=== PATIENT | female | born 1945 | race Caucasian/White ===

== ENCOUNTER 2018-07-11 00:25 | Outpatient (CLI) | payer MEDICARE, BC, SELFPAY ==
--- NOTE | 2018-07-11 08:34 | DI.REPORT_ITS ---
SYMPTOM/DIAGNOSIS: RIGHT SIDED PELVIC PAIN R10.2 HEMATURIA PELVIC ULTRASOUND: Comparison is made with 16 Nov 2013. Transabdominal and transvaginal exams were performed. The patient is status post hysterectomy. The ovaries were not able to be identified either transabdominally or transvaginally. No fluid is seen in the pelvis. Urinary bladder was not well distended for the transabdominal images. The kidneys are unremarkable. IMPRESSION: Status post hysterectomy. The ovaries were not identified.
== END 2018-07-11 00:26 ==
PROVIDERS: PCP General Practice; Visit Provider Nurse Practitioner Women's Health
DX: R10.2 Pelvic and perineal pain (principal); R31.9 Hematuria, unspecified; Z90.710 Acquired absence of both cervix and uterus
CPT/HCPCS: 76830; 76856

== ENCOUNTER 2019-02-22 09:31 | Emergency (ER) | payer MEDICARE, BC, SELFPAY ==
[2019-02-22 09:34] VITALS: BP 152/69; PULSE 70; RESP 16; TEMP 36.6; O2SAT 99
--- NOTE | 2019-02-22 10:12 | DI.US_ITS ---
SYMPTOMS/DIAGNOSIS: LT POSTERIOR KNEE PAIN LEFT LEG ULTRASOUND: There is no evidence of DVT. A small fluid collection is noted posterior to the knee and would certainly be consistent with a adan's cyst. This collection measures approximately 1 x 1.9 x 0.4 cm.
--- NOTE | 2019-02-22 12:08 | DI.RAD_ITS ---
SYMPTOMS/DIAGNOSIS: LT POSTERIOR KNEE PAIN LEFT KNEE: The bony structures and joint spaces appear intact. There is no evidence of a fracture or dislocation.
[2019-02-22] MEDS: Ibuprofen 800 MG TAB PO (12:09)
[2019-02-22] MEDS: Acetaminophen 500 MG TAB 1000 MG PO (12:10)
[2019-02-22] MEDS: Lidocaine 5% Patch 1 PATCH TP (12:12)
--- NOTE | 2019-02-22 12:20 | ED.GENADUL_ITS ---
Discharge Plan Disposition Patient Disposition: HOME Condition: Good Discharge Details Chief Complaint: Orthopedic Clinical Impression: Clark cyst Primary Care Provider: Andry Ceballos ED Provider: You Stein Home Meds and New Rx's Prescriptions: No Action calcium carbonate [Calcium 500] 500 MG tablet 500 mg PO DAILY RF: 0 Vitamin C 100 MG tablet 100 mg PO DAILY RF: 0 epinephrine 0.3 MG/0.3 ML auto-injector 0.3 mg IM PRN RF: 0 CENTRUM TABLET 1 EACH tablet 1 ea PO DAILY RF: 0 fluticasone propionate 16 GM spray,suspension 1 spray NS DAILY PRNQty: 3 RF: 3 zinc 50 mg Tablet PO DAILY RF: 0 Discharge Instructions Instructions: Bakers Cyst (ED) Additional Instructions: Please take up to 1000 mg of Tylenol every 6 hours and a maximum dose of 600 mg of ibuprofen every 6 hours for the pain. Please keep it wrapped in an wrap, use the crutches as directed. Please use ice as often as possible. Please follow-up with your orthopedic surgeon Dr. Nielsen or your primary care provider as soon as possible for reassessment. If you notice any worsening of your symptoms, or any new symptoms such as vomiting, diarrhea, fever, chills, shortness of breath, chest pain, numbness, weakness, or fainting , please return immediately to the emergency department for reevaluation. Please follow up with your primary care provider as soon as possible for reassessment and reevaluation. As always, it was a pleasure participating in your medical care today. Referrals: Andry Ceballos MD [Primary Care Provider] - Discharge Data Discharge Date/Time-TO BE ENTERED AT DEPARTURE: 02/22/19 12:30 Medical Decision Making Is a 74-year-old female who presents today for evaluation of left knee pain began yesterday without any trauma she was working in the knee. The pain gradually worsened yesterday and has continued today. Patient has moderate pain when ambulating, has difficulty bearing weight secondary to the pain posterior aspect of the knee. It is notably worsened with extension. Physical exam demonstrates no signs of joint or ligamentous laxity. There is reproducible t enderness in the posterior aspect notably concerning for Clark's cyst. No significant calf tenderness. I did discuss with the patient a conservative approach versus further workup for what was expected to be a Clark's cyst, and the patient is requesting further evaluation and workup. X-ray and ultrasound was ordered. Ultrasound shows no evidence of DVT in her extremity, and x-ray shows no evidence of acute fracture process. With no history of trauma I do not think that a CT scan is clinically indicated at this time. Ultrasound does show evidence of a notable Clark's cyst, which is clinically consistent with her symptomatology and history. We will recommend continued NSAIDs, wrapping with an bandage, ice, and crutches nonweightbearing as tolerated. Recommend close follow-up with her primary care provider as well. If her symptoms do not improve in the next 1-2 weeks with conservative therapy, orthopedic referral may be indicated by her PCP. Prior to discharge we did do an ambulatory test with her and the crutches, the patient ambulated well with the crutches, and she and her state that they feel comfortable to go home. Discussed red flags for which to return and the patient understands. I have extensively reviewed the treatment plan and discharge instructions with the patient and their family. I have addressed all patient concerns at this time. The patient and family was made aware of what symptoms to monitor for that would warrant a return to the emergency department. Discussed the plan with the patient and family, they demonstrate verbal understanding and agreement with our assessment and plan at this time. Exam(s) a RAD:XR knee LT 3V AP,lat,charleen SYMPTOMS/DIAGNOSIS: LT POSTERIOR KNEE PAIN LEFT KNEE: The bony structures and joint spaces appear intact. There is no evidence of a fracture or dislocation. Ordered By: You Stein DO CC: Exam(s) a US:US lower extremity venous LT SYMPTOMS/DIAGNOSIS: LT POSTERIOR KNEE PAIN LEFT LEG ULTRASOUND: There is no evidence of DVT. A small fluid collection is noted posterior to the knee and would certainly be consistent with a clark's cyst. This collection measures approximately 1 x 1.9 x 0.4 cm. Ordered By: You Stein DO CC: HPI General Date/Time Provider Initiated Documentation: 02/22/19 09:52 . HPI Narrative: This is a 74-year-old female with a past medical history of asthma, osteoporosis, cervical cancer who presents today for evaluation of left-sided knee pain. Patient states that yesterday she has been working, and noticed a small area of soreness behind her knee, this pain continued and slightly worsened with use over the next 24 hours. Patient describes the pain is in the posterior aspect of her left knee, worse with extension of the knee as well as being weight. She denies any fall, trauma, or other incident. She denies any radiation of the pain down the leg or up the leg towards the hip. She denies any fever or chills. She is not on blood thinners. She denies any previous significant surgeries on the knee. She denies any other modifying factors. No other complaints at this time. She has taken some NSAIDs and this is slightly improved her symptoms. Related Data Home Medications Medication Instructions Recorded Confirmed Centrum Tablet 1 ea PO DAILY 11/09/13 02/22/19 Vitamin C 100 mg PO DAILY 11/09/13 02/22/19 calcium carbonate [Calcium 500] 500 mg PO DAILY 11/09/13 02/22/19 epinephrine 0.3 mg IM PRN 11/09/13 02/22/19 fluticasone propionate 1 spray NS DAILY PRN #3 spray 11/18/14 02/22/19 zinc mg PO DAILY 02/22/19 Allergies Allergy/AdvReac Type Severity Reaction Status Date / Time amoxicillin Allergy Severe HIVES Unverified 02/22/19 09:41 ampicillin Allergy Severe HIVES Unverified 02/22/19 09:41 clarithromycin Allergy Severe SOB Unverified 02/22/19 09:41 erythromycin base Allergy Severe SOB Unverified 02/22/19 09:41 Iodinated Contrast- Oral and Allergy Severe LOC Unverified 02/22/19 09:41 IV Dye [Iodinated Contrast Media - Oral and] shellfish derived Allergy Intermediate Unverified 02/22/19 09:41 venom-honey bee Allergy Intermediate Unverified 02/22/19 09:41 [place] Allergy Intermediate Severe GI Uncoded 02/22/19 09:41 upset General Stated Complaint: Orthopedic SONYA: 3 Review of Systems Review of Systems All systems reviewed & are unremarkable except as noted in HPI and below PFSH Medical History Asthma Breast cancer Cervical cancer Osteoporosis Surgical History Biopsy of breast Breast Surgery Surgeries Vaginal hysterectomy Family History Mother Heart disease Hyperlipidemia Leukemia Stroke Father Leukemia Sister Essential hypertension Neoplasm Asthma Brother Heart disease Hyperlipidemia Neoplasm Brother Neoplasm Brother Neoplasm Brother Neoplasm Grandfather Heart disease Stroke Grandfather No problems noted. Grandmother Heart disease Grandmother No problems noted. Son No problems noted. Daughter No problems noted. Daughter No problems noted. Social History Smoking/Tobacco Use Status: Never Alcohol Intake: never Substance use type: does not use Do you feel safe at home: Yes Do you feel safe in your relationship?: Yes Exam Narrative Exam Narrative: 1.Const: Well-nourished, Well-developed, appearing stated age 2.Eyes: PERRL, no conjunctival injection, and symmetrical lids. 3.ENT: Atraumatic external nose and ears. Moist MM. Neck: Symmetric, trachea midline, No thyromegaly. 4.CVS: +S1/S2, No murmurs or gallops. Peripheral pulses 2+ and equal in all extremities. Brisk capillary refill in all extremities. 5.RESP: Unlabored respiratory effort. Clear to auscultation bilaterally. No wheezes rales or rhonchi 6.GI: Soft, Nontender/Nondistended, No hepatosplenomegaly. No guarding or rebound. 7.MSK: Normocephalic/Atraumatic, Extremities w/o deformity. No cyanosis or clubbing, left knee: The knee is stable to varus, valgus, and anterior drawer stress. No deformity. Patellar grind test is negative. Minimal swelling and tenderness in the posterior aspect of the left knee. No evidence of warmth or infection. No signs of bruising or trauma. Patient does have pain when walking and extending the knee. No ttp to the patella, tibial plateau, or fibular head. 8.Skin: Warm, Dry. No rashes or lesions. 9.Neuro: medical transcription radiology II-XII grossly intact. Sensation grossly intact, no focal neurologic deficits. 10.Psych: (AAO) x3. Appropriate mood and affect Course Vital Signs Temperature 36.6 C 02/22/19 09:34 Pulse 70 02/22/19 09:34 Respiratory Rate 16 02/22/19 09:34 Blood Pressure 152/69 H 02/22/19 09:34 Pulse Oximetry 99 02/22/19 09:34 Temperature 36.6 C 02/22/19 09:34 Temperature Source Skin 02/22/19 09:34 Pulse 70 02/22/19 09:34 Respiratory Rate 16 02/22/19 09:34 Respiratory Effort 02/22/19 09:44 Blood Pressure 152/69 H 02/22/19 09:34 Blood Pressure Position Sitting 02/22/19 09:34 Pulse Oximetry 99 02/22/19 09:34 Oxygen Delivery Method Room Air 02/22/19 09:34 Oxygen Flow Rate 0 02/22/19 09:34 Pain Level 10 02/22/19 12:10 Lab/Test Results Lab/Test Results: Laboratory Tests Range/Units 02/22/19 02/22/19 02/22/19 10:00 10:00 10:00 WBC Cancelled RBC Cancelled Hgb Cancelled Hct Cancelled MCV Cancelled MCH Cancelled MCHC Cancelled RDW Cancelled Plt Count Cancelled MPV Cancelled Immature Gran % Cancelled Neutrophils % Cancelled Band Neutrophils % Cancelled Lymphocytes % Cancelled Atypical Lymphs % Cancelled Monocytes % Cancelled Eosinophils % Cancelled Basophils % Cancelled Metamyelocytes % Cancelled Myelocytes % Cancelled Promyelocytes % Cancelled Absolute Neutrophils Cancelled Absolute Lymphocytes Cancelled Absolute Monocytes Cancelled Absolute Eosinophils Cancelled Absolute Basophils Cancelled Nucleated RBCs Cancelled Differential Comment Cancelled Other Cell Type Cancelled RBC Morphology Cancelled Polychromasia Cancelled Hypochromasia Cancelled Poikilocytosis Cancelled Basophilic Stippling Cancelled Anisocytosis Cancelled Microcytosis Cancelled Macrocytosis Cancelled Spherocytes Cancelled Target Cells Cancelled Tear Drop Cells Cancelled Ovalocytes Cancelled Stomatocytes Cancelled [place] Bodies Cancelled [place] Cells Cancelled Acanthocytes (Spur) Cancelled Schistocytes Cancelled PT Cancelled INR Cancelled APTT Cancelled D-Dimer Cancelled VBG pH VBG pCO2 VBG pO2 VBG HCO3 VBG Total CO2 VBG O2 Saturation VBG Base Excess Sodium Cancelled Potassium Cancelled Chloride Cancelled Carbon Dioxide Cancelled Anion Gap Cancelled BUN Cancelled Creatinine Cancelled Estimated GFR/1.73 m2 Cancelled Glucose Cancelled Calcium Cancelled Total Bilirubin Cancelled AST Cancelled ALT Cancelled Alkaline Phosphatase Cancelled Troponin I Cancelled NT-Pro-B Natriuret Pep Cancelled Total Protein Cancelled Albumin Cancelled Range/Units 02/22/19 10:00 WBC RBC Hgb Hct MCV MCH MCHC RDW Plt Count MPV Immature Gran % Neutrophils % Band Neutrophils % Lymphocytes % Atypical Lymphs % Monocytes % Eosinophils % Basophils % Metamyelocytes % Myelocytes % Promyelocytes % Absolute Neutrophils Absolute Lymphocytes Absolute Monocytes Absolute Eosinophils Absolute Basophils Nucleated RBCs Differential Comment Other Cell Type RBC Morphology Polychromasia Hypochromasia Poikilocytosis Basophilic Stippling Anisocytosis Microcytosis Macrocytosis Spherocytes Target Cells Tear Drop Cells Ovalocytes Stomatocytes [place] Bodies [place] Cells Acanthocytes (Spur) Schistocytes PT INR APTT D-Dimer VBG pH Cancelled VBG pCO2 Cancelled VBG pO2 Cancelled VBG HCO3 Cancelled VBG Total CO2 Cancelled VBG O2 Saturation Cancelled VBG Base Excess Cancelled Sodium Potassium Chloride Carbon Dioxide Anion Gap BUN Creatinine Estimated GFR/1.73 m2 Glucose Calcium Total Bilirubin AST ALT Alkaline Phosphatase Troponin I NT-Pro-B Natriuret Pep Total Protein Albumin
== END 2019-02-22 12:30 | disposition home or self-care (01) ==
PROVIDERS: Emergency Provider Student in an Organized Health Care Education/Training Program; PCP General Practice
DX: M71.22 Synovial cyst of popliteal space [Baker], left knee (principal)
CPT/HCPCS: 73562; 80053; 82805; 99284; 83880; 84484; 85025; 85379; 85610; 85730; 93971; E0114

== ENCOUNTER 2019-03-15 11:08 | Outpatient (CLI) | payer MEDICARE, BC, SELFPAY ==
--- NOTE | 2019-03-15 11:20 | DI.RAD_ITS ---
SYMPTOMS/DIAGNOSIS: SWELLING LEFT KNEE: AP view only was obtained and shows narrowing of the medial tibiofemoral cartilaginous joint space. No focal bony abnormality seen on this single view.
== END 2019-03-15 11:28 ==
PROVIDERS: PCP General Practice; Referring Provider General Practice; Visit Provider Orthopaedic Surgery
DX: M25.562 Pain in left knee (principal); M25.462 Effusion, left knee; M70.52 Other bursitis of knee, left knee
CPT/HCPCS: 20610; 99202; 99213; 73560; J1030; J1040

== ENCOUNTER 2019-03-26 14:13 | Emergency (ER) | payer MEDICARE, BC, SELFPAY ==
[2019-03-26 14:18] VITALS: BP 140/84; PULSE 86; RESP 16; TEMP 36.8; O2SAT 95
--- NOTE | 2019-03-26 15:12 | DI.COMBO_ITS ---
SYMPTOM/DIAGNOSIS: WORSENING PAIN AND INCREASED SWELLING LEFT LOWER EXTREMITY ULTRASOUND: The deep veins of the left lower extremity show normal compression, augmentation and color flow. There is no evidence of a deep venous thrombus. The saphenofemoral junction appears unremarkable. There is a 1.6 by 1.7 by 1.2 cm. fluid collection in the popliteal fossa consistent with a small Clark's cyst. IMPRESSION: No evidence of a left lower extremity deep venous thrombus. Small Clark's cyst. LEFT KNEE: Three views. Comparison is made with 03/15/19 and 02/22/19. In the subchondral bone in the medial femoral condyle there is an area of sclerosis not appreciated on the prior examination. The bones are otherwise normally mineralized. No displaced fracture or dislocation is identified. There does appear to be a small joint effusion. The soft tissues are otherwise unremarkable. IMPRESSION: Question of a faint area of sclerosis in the subchondral bone in the medial femoral condyle. This may represent a nondisplaced insufficiency fracture. If further imaging is warranted, a repeat xray or MRI may be considered. Small joint effusion.
--- NOTE | 2019-03-26 15:19 | ED.GENADUL_ITS ---
Discharge Plan Disposition Patient Disposition: HOME Condition: Stable Discharge Details Chief Complaint: Orthopedic Clinical Impression: Knee pain, left, Effusion of left knee Primary Care Provider: Andry Ceballos ED Provider: Luisito Collins Home Meds and New Rx's Prescriptions: No Action calcium carbonate [Calcium 500] 500 MG tablet 1,800 mg PO DAILY RF: 0 Vitamin C 100 MG tablet 100 mg PO DAILY RF: 0 epinephrine 0.3 MG/0.3 ML auto-injector 0.3 mg IM PRN RF: 0 CENTRUM TABLET 1 EACH tablet 1 ea PO DAILY RF: 0 fluticasone propionate 16 GM spray,suspension 1 spray NS DAILY PRNQty: 3 RF: 3 zinc 50 mg Tablet PO DAILY RF: 0 Discharge Instructions Additional Instructions: Your ultrasound did not show any blood clot, you do have a clark's cyst. Your lab work was reassuring there is no infection in the joint Follow up with Dr. Stewart, call his office for an appointment if the knee becomes red, warm to touch or you have high fevers return to the emergency department Discharge Data Discharge Date/Time-TO BE ENTERED AT DEPARTURE: 03/26/19 18:20 Medical Decision Making <Luisito Collins MD - Last Filed: 03/26/19 18:16> 74 yo female comes in with over a month of left knee pain and denies any known trauma or falls. Was seen here on 02/22 and had xray and u/s done showing clark's cyst. On 03/16 she had joint injection done with Dr. Stewart and she states the pain never really went away. She has had increased pain and swelling so her pcp sent her here today for ane roly. She has no erythema or warmth of the left knee. She is able to range the knee but has discomfort. NO specific area hurts more than the rest. There is a small amount of swelling of the knee joint. I doubt septic joint given lack of warmth or redness but will send cbc, crp and esr to screen for this and also obtain xray and u/s u/s shows clark's cyst, no dvt. Xray shows small effusion, osteopenia, ?insufficiency fx though has no pain in this area. Labs reassuring that this is not a septic joint and fits with her exam. Spoke with Dr. stewart who reid ee her in the office this week. i did offer to attempt drain the knee here but pt declined. Return precautions given Differential Diagnosis OA, gout, dvt, clark's cyst Imaging Data Radiologic Study: Attestation: I personally reviewed and interpreted this imaging study as follows: Imaging: X-Ray Radiologist's impression: IMPRESSION: 1. Tiny knee joint effusion. 2. Osteopenia. 3. Faint horizontal band of sclerosis in the subchondral aspect of the distal femur medial condyle, which may be seen with nondisplaced insufficiency fracture without subchondral bone step-off. Radiologic Study #2: Attestation: I personally reviewed and interpreted this imaging study as follows: Imaging: Ultrasound Radiologist's impression: FINDINGS: Left deep veins: Unremarkable. The common femoral, femoral, proximal profunda femoral and popliteal veins are patent without thrombus. Normal Doppler waveforms. Normal compressibility and/or augmentation response. Left superficial veins: Unremarkable. Saphenofemoral junction is patent without thrombus. Soft tissues: There is a fluid collection, measuring 1.6 cm x 1.7 cm x 1.2 cm within the popliteal fossa consistent with small Clark's cyst versus other bursitis. IMPRESSION: No deep venous thrombosis. Lab Data Lab results reviewed: Yes I reviewed the patient's lab results. HPI <Luisito Collins MD - Last Filed: 03/26/19 18:16> General Date/Time Provider Initiated Documentation: 03/26/19 14:31 . Limitations to Documentation: no limitations . Information obtained by: patient . History of Present Illness 74 year old F presents to the emergency department with the chief complaint of left knee pain, described as moderate, Quality is described as aching, and is localized to the left and lower extremity. Patient reports no radiation. Patient started experiencing this month(s) (1) and it has been constant. Rest improves symptom(s), Movement worsens symptoms . Patient notes no other symptoms.. Patient did receive the following treatments prior to arrival, none Related Data Home Medications Medication Instructions Recorded Confirmed Centrum Tablet 1 ea PO DAILY 11/09/13 03/26/19 Vitamin C 100 mg PO DAILY 11/09/13 03/26/19 calcium carbonate [Calcium 500] 1,800 mg PO DAILY 11/09/13 03/15/19 epinephrine 0.3 mg IM PRN 11/09/13 03/26/19 fluticasone propionate 1 spray NS DAILY PRN #3 spray 11/18/14 03/26/19 zinc mg PO DAILY 02/22/19 03/15/19 Allergies Allergy/AdvReac Type Severity Reaction Status Date / Time amoxicillin Allergy Severe HIVES Unverified 03/26/19 14:27 ampicillin Allergy Severe HIVES Unverified 03/26/19 14:27 clarithromycin Allergy Severe SOB Unverified 03/26/19 14:27 erythromycin base Allergy Severe SOB Unverified 03/26/19 14:27 Iodinated Contrast- Oral and Allergy Severe LOC Unverified 03/26/19 14:27 IV Dye [Iodinated Contrast Media - Oral and] shellfish derived Allergy Intermediate Unverified 03/26/19 14:27 venom-honey bee Allergy Intermediate Unverified 03/26/19 14:27 [place] Allergy Intermediate Severe GI Uncoded 03/26/19 14:27 upset <Maddi Morin MD - Last Filed: 03/27/19 20:36> HPI Narrative: I did not see this patient or participate in her care, note started by me in error. General Stated Complaint: Vascular SONYA: 3 Review of Systems <Luisito Collins MD - Last Filed: 03/26/19 18:16> Review of Systems All systems reviewed & are unremarkable except as noted in HPI and below Constitutional Denies chills, Denies fever(s) and Denies weakness ENT Denies change in voice Cardiovascular Denies chest pain and Denies dyspnea Respiratory Denies cough and Denies dyspnea Gastrointestinal Denies abdominal pain, Denies nausea and Denies vomiting Genitourinary Denies dysuria Integumentary/Breasts Denies rash Neurologic Denies weakness Psychiatric Denies depression Endocrine Denies cold intolerance and Denies heat intolerance PFS <Luisito Collins MD - Last Filed: 03/26/19 18:16> Medical History Asthma Breast cancer Cervical cancer Osteoporosis Surgical History Biopsy of breast Breast Surgery Surgeries Vaginal hysterectomy Family History Mother Heart disease Hyperlipidemia Leukemia Stroke Father Leukemia Sister Essential hypertension Neoplasm Asthma Brother Heart disease Hyperlipidemia Neoplasm Brother Neoplasm Brother Neoplasm Brother Neoplasm Grandfather Heart disease Stroke Grandfather No problems noted. Grandmother Heart disease Grandmother No problems noted. Son No problems noted. Daughter No problems noted. Daughter No problems noted. Social History Smoking/Tobacco Use Status: Never Alcohol Intake: never Substance use type: does not use Do you feel safe at home: Yes Do you feel safe in your relationship?: Yes Exam <Luisito Collins MD - Last Filed: 03/26/19 18:16> Const General: no acute distress Orientation: alert HENMT Head: normal to inspection Ears: external ears normal General nose exam: external nose normal Mouth: moist mucous membranes Eyes General: appearance normal, both eyes and all related structures Neck Neck: normal visual inspection Resp Effort & Inspection: normal respiratory effort and able to speak in complete sentences Cardio Rate: regular rate Skin General skin exam: no rashes or lesions noted Neuro General: alert and oriented x3 Extrem General: normal capillary refill Psych Mental Status: mental status grossly normal <Maddi Morin MD - Last Filed: 03/27/19 20:36> Vital Signs Temperature 36.8 C 03/26/19 14:18 Pulse 86 03/26/19 14:18 Respiratory Rate 16 03/26/19 14:18 Blood Pressure 140/84 03/26/19 14:18 Pulse Oximetry 95 03/26/19 14:18 Temperature 36.8 C 03/26/19 14:18 Temperature Source Skin 03/26/19 14:18 Pulse 86 03/26/19 14:18 Respiratory Rate 16 03/26/19 14:18 Respiratory Effort 03/26/19 14:30 Blood Pressure 140/84 03/26/19 14:18 Pulse Oximetry 95 03/26/19 14:18 Oxygen Delivery Method Room Air 03/26/19 14:18 Oxygen Flow Rate 0 03/26/19 14:18 Pain Level 9 03/26/19 14:18
--- NOTE | 2019-03-26 16:34 | DI.VRAD_ITS ---
EXAM: US Duplex Left Lower Extremity Veins, Limited EXAM DATE/TIME: 03/26/2019 3:40 PM CLINICAL HISTORY: 74 years old, female; Pain; Leg, lower; Left TECHNIQUE: Imaging protocol: Real-time Duplex ultrasound of the Left Lower Extremity with 2-D carlson scale, color Doppler flow and spectral waveform analysis. Limited exam focused on the left lower extremity veins. COMPARISON: No relevant prior studies available. FINDINGS: Left deep veins: Unremarkable. The common femoral, femoral, proximal profunda femoral and popliteal veins are patent without thrombus. Normal Doppler waveforms. Normal compressibility and/or augmentation response. Left superficial veins: Unremarkable. Saphenofemoral junction is patent without thrombus. Soft tissues: There is a fluid collection, measuring 1.6 cm x 1.7 cm x 1.2 cm within the popliteal fossa consistent with small Clark's cyst versus other bursitis. IMPRESSION: No deep venous thrombosis. Dictated and Authenticated by: Javan Veliz MD. Ordering:TANIA Jorge MD
[2019-03-26 16:36] LABS: Abs Immature Grans 0.02 k/cumm (0.0-0.09); Absolute Basophil Count 0.03 k/cumm (0.0-0.2); Absolute Eosinophil Count 0.22 k/cumm (0.0-0.7); Absolute Lymphocyte Count 2.47 k/cumm (1.2-3.4); Absolute Monocyte Count 0.65 k/cumm (0.11-0.7); Absolute Neutrophil Count 6.72 k/cumm (1.2-6.7); Basophils % 0.3; Eosinophils % 2.2; Immature Grans % 0.2; Lymphocytes % 24.4; Mean Corp. HGB Concentration 34.1 g/dL (32.0-36.0); Mean Corpuscular Hemoglobin 31.1 pg (27.0-33.0); Mean Corpuscular Volume 91.1 fL (80-95); Mean Platelet Volume 11.1 fL (8.0-11.0); Monocytes % 6.4; Neutrophils % 66.5; Platelet Count 245 x1000/uL (130-400); RBC Distribution Width 14.4 % (11.7-14.6); White Blood Cell Count 10.11 k/cumm (4.4-10.8)
--- NOTE | 2019-03-26 16:37 | DI.VRAD_ITS ---
EXAM: XR Left Knee, 3 Views EXAM DATE/TIME: 03/26/2019 4:12 PM CLINICAL HISTORY: 74 years old, female; Knee; Left; Patient HX: Worsening pain and swelling TECHNIQUE: Imaging protocol: XR Left knee. Views: 3 views. COMPARISON: CR XR knee LT 1V 03/15/2019 11:14 AM FINDINGS: Bones/joints: Tiny knee joint effusion. Osteopenia. Small horizontal band of sclerosis within the subchondral aspect of the distal femur medial condyle which may indicate a nondisplaced insufficiency fracture. No subchondral bone step-off is identified. The tibiofemoral and patellofemoral joints are unremarkable. No displaced fracture. Soft tissues: Normal. IMPRESSION: 1. Tiny knee joint effusion. 2. Osteopenia. 3. Faint horizontal band of sclerosis in the subchondral aspect of the distal femur medial condyle, which may be seen with nondisplaced insufficiency fracture without subchondral bone step-off. Dictated and Authenticated by: Javan Veliz MD. Ordering:TANIA Jorge MD
[2019-03-26 16:46] LABS: C-Reactive Protein 0.64 mg/dL (0.0-0.3)
[2019-03-26 16:48] LABS: ALT 18 U/L (12-78); AST 15 U/L (15-37); Alkaline Phosphatase 72 U/L (46-116); Anion Gap 7.6 mmol/L (3-11); BUN 25 mg/dL (7-18); Bilirubin, Total 0.4 mg/dL (0.2-1.0); CO2 27.4 mmol/L (21.0-32.0); CREATININE 0.72 mg/dL (0.55-1.02); Calcium 9.3 mg/dL (8.5-10.1); Chloride 104 mmol/L (98-107); Glucose 89 mg/dL (70-100); Sodium 139 mmol/L (136-145); Total Protein 7.5 g/dL (6.4-8.2)
[2019-03-26 17:26] LABS: ESR 11 MM/HR (0-30)
== END 2019-03-26 18:20 | disposition home or self-care (01) ==
PROVIDERS: Emergency Provider Emergency Medicine; PCP General Practice
DX: M25.562 Pain in left knee (principal); M25.462 Effusion, left knee; M71.22 Synovial cyst of popliteal space [Baker], left knee; M85.80 Other specified disorders of bone density and structure, unspecified site
CPT/HCPCS: 36415; 73562; 80053; 85652; 99284; 85025; 86140; 93971

== ENCOUNTER 2019-03-28 01:18 | Outpatient (CLI) | payer MEDICARE, BC, SELFPAY ==
--- NOTE | 2019-03-28 08:46 | DI.MRI_ITS ---
SYMPTOM/DIAGNOSIS: LT KNEE PAIN, NEG US, ? INSUFFICIENCY FX LEFT KNEE MRI: Routine noncontrast examination. Comparison xray is 03/26/19. There is a tear of the body and posterior horn of the medial meniscus. There is displacement of meniscal tissue into the intercondylar notch. The lateral meniscus is intact. The anterior cruciate, posterior cruciate, medial and lateral collateral ligaments, extensor mechanism and medial and lateral retinaculum are intact as is the popliteus tendon. There is thinning of the articular cartilage in the medial femoral tibial joint space. The articular cartilage is otherwise well maintained. There is a large amount of marrow edema involving the medial femoral condyle. There is a linear, low signal area in the subchondral bone of the medial femoral condyle suggestive of a fracture. There is mild marrow edema seen in the medial tibial plateau. There is a moderate sized joint effusion. No significant popliteal cyst is present. IMPRESSION: 1. Tear of the body and posterior horn of the medial meniscus with displacement of meniscal tissue medially into the intercondylar region. 2. Findings of a nondisplaced fracture involving the medial femoral condyle. 3. Moderate sized joint effusion.
== END 2019-03-28 01:38 ==
PROVIDERS: PCP General Practice; Visit Provider Orthopaedic Surgery
DX: M25.562 Pain in left knee (principal); S83.242A Other tear of medial meniscus, current injury, left knee, initial encounter; S72.435A Nondisplaced fracture of medial condyle of left femur, initial encounter for closed fracture; M25.462 Effusion, left knee
CPT/HCPCS: 73721

== ENCOUNTER → 2019-04-03 09:43 | Outpatient (BNVA) | payer MEDICARE, BC, SELFPAY | PROVIDERS: PCP General Practice; Referring Provider General Practice; Visit Provider Orthopaedic Surgery | DX: S83.242A Other tear of medial meniscus, current injury, left knee, initial encounter (principal); X58.XXXA Exposure to other specified factors, initial encounter; M87.9 Osteonecrosis, unspecified | CPT/HCPCS: 99212; 99213 ==

== ENCOUNTER 2019-08-30 15:32 | Outpatient (CLI) | payer MEDICARE, BC, SELFPAY ==
[2019-08-30 18:56] LABS: CREATININE 0.83 mg/dL (0.55-1.02)
== END 2019-08-30 15:52 ==
PROVIDERS: PCP General Practice; Visit Provider General Practice
DX: I10 Essential (primary) hypertension (principal)
CPT/HCPCS: 36415; 82565

== ENCOUNTER 2025-06-04 15:50 | Outpatient (REF) | payer MEDICARE, BC, SELFPAY ==
[2025-06-04 20:13] LABS: ALT 30 U/L (14-59); AST 25 U/L (15-37); Albumin 4.1 g/dL (3.4-5.0); Alkaline Phosphatase 81 U/L (46-116); Anion Gap 8.6 mmol/L (3-11); BUN 20 mg/dL (7-18); Bilirubin, Total 0.6 mg/dL (0.2-1.0); CO2 24.4 mmol/L (21.0-32.0); Calcium 9.2 mg/dL (8.5-10.1); Calculated LDL 129 mg/dL (<100); Chloride 107 mmol/L (98-107); Cholesterol 214 mg/dL (<200); Estimated GFR 87.37 (mL/min/1.73m2); Glucose 98 mg/dL (74-106); HDL Cholesterol 74 mg/dL (>or=50); Potassium 4.2 mmol/L (3.5-5.1); Sodium 140 mmol/L (136-145); Total Protein 7.5 g/dL (6.4-8.2); Triglyceride 59 mg/dL (<150)
== END 2025-06-04 15:51 | disposition home or self-care (01) ==
LOC: NCHCN 15:50
PROVIDERS: PCP General Practice; Visit Provider Nurse Practitioner Family
DX: Z13.220 Encounter for screening for lipoid disorders (principal); Z13.1 Encounter for screening for diabetes mellitus
CPT/HCPCS: 80053; 80061